=== PATIENT | female | born 2000 | race African-American/Black ===

== ENCOUNTER 2022-12-02 21:09 | Emergency (ER) | payer OTHER, SELFPAY ==
[2022-12-02 21:37] VITALS: BP 133/85; PULSE 106; RESP 18; TEMP 36.9; O2SAT 98; BMI 32.9
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
[2022-12-02] MEDS: Ibuprofen 600 MG TABLET PO (23:09)
== END 2022-12-02 23:10 | disposition home or self-care (01) ==
PROVIDERS: Emergency Provider Internal Medicine
DX: S60.413A Abrasion of left middle finger, initial encounter (principal); M79.645 Pain in left finger(s); R04.0 Epistaxis; Y04.2XXA Assault by strike against or bumped into by another person, initial encounter; Y93.9 Activity, unspecified; Y92.9 Unspecified place or not applicable; Y99.0 Civilian activity done for income or pay
CPT/HCPCS: 99283